=== PATIENT | female | born 1950 | race Caucasian/White ===

== ENCOUNTER → 2022-11-25 12:26 | Outpatient (CLI) | payer OTHER, MEDICAID, SELFPAY ==
--- NOTE | 2022-11-25 12:31 | DI.ECHO.S_ITS ---
[facility]---------+ [facility] +---------+ : : [address] : [place] : : : : [id number] : : : : Phone: [phone]+ Echocardiogram Report + + :Name: SYED RUSHING Study Date: 11/25/2022 Height: 62 in : :[facility] ReadingLocation: Weight: 114 lb : : Gender: Female BSA: 1.5 m2 : :: 1950 Age: 72 yrs BP: 134/71 mmHg: :Reason For Study: AORTIC INSUFFICIENCY : :Ordering Physician: Wendy GRANDEformed By: Elaine Hoyt : :Referring: BRIANA GRANDE : + + Interpretation Summary The left ventricle is normal in size and wall thickness. The ejection fraction is estimated to be 60-65%. The right ventricle is normal in size and function. There is mild mitral regurgitation. There is mild aortic regurgitation. There is mild tricuspid regurgitation. The right ventricular systolic pressure is estimated to be at least 24 mmHg based on an estimated right atrial pressure of 3 mm Hg. Procedure: A two-dimensional transthoracic echocardiogram with color flow and Doppler was performed. The study quality was technically adequate. There is no prior echocardiogram noted for this patient. The patient was in sinus bradycardia with heart rates between 52-60 bpm during the exam. Left Ventricle: The left ventricle is normal in size and wall thickness. There is no thrombus. The ejection fraction is estimated to be 60-65%. There are no focal wall motion abnormalities. MV E/A: 1.1 Med Peak E' Alec: 6.8 cm/sec E/E' med: 10.6. Right Ventricle: The right ventricle is normal in size and function. Atria: The left atrial size is normal. Right atrial size is normal. There is no Doppler evidence for an interatrial shunt. Mitral Valve: The mitral valve leaflets are slightly calcified. There is mild mitral regurgitation. Aortic Valve: The aortic valve is trileaflet. The aortic valve opens well. There is no aortic valve stenosis. There is mild aortic regurgitation. Tricuspid Valve: The tricuspid valve is normal. There is mild tricuspid regurgitation. The right ventricular systolic pressure is estimated to be at least 24 mmHg based on an estimated right atrial pressure of 3 mm Hg. Pulmonic Valve: The pulmonic valve is not well visualized. There is no pulmonic valvular regurgitation. Great Vessels: The aortic root is normal size. The dimensions of the ascending aorta are normal. The IVC is of normal diameter and collapses greater than 50% with a sniff. This suggests a low right atrial pressure of 3 mm Hg. Pericardium/ Pleura There is no pericardial effusion. There is no pleural effusion. MMode/2D Measurements & Calculations LVIDd: 4.5 cm LVOT diam: 1.8 cm LVIDs: 2.9 cm Ao root diam: 2.8 cm FS: 35.0 % asc Aorta Diam: 2.9 cm IVSd: 0.55 cm Ao Arch Diam (Prox Trans): 2.5 cm LVPWd: 0.57 cm LV manley. diameter/BSA (cm/m^2): 3.0 LV sys. diameter/BSA (cm/m^2): 1.9 LA A2 area: 12.9 cm2 RA long axis: 4.0 cm LA A4 area: 9.9 cm2 RA area: 12.4 cm2 LA length (vol): 3.9 cm RA vol: 32.5 ml LA vol: 28.2 ml RA : 21.6 ml/m2 LA vol index: 18.8 ml/m2 IVC diam: 1.4 cm RVD1 (basal): 3.3 cm TAPSE: 2.5 cm Doppler Measurements & Calculations Ao V2 max: 112.8 cm/sec LVOT Max Alec: 95.4 cm/sec Ao V2 mean: 70.8 cm/sec LV V1 max P.6 mmHg Ao max P.1 mmHg LV V1 VTI: 20.9 cm Ao mean P.3 mmHg ANDREW(I,D): 2.2 cm2 Ao V2 VTI: 24.8 cm ANDREW(V,D): 2.3 cm2 sev ratio: 0.84 ANDREW indexed to BSA (cm^2/m^2): 1.5 AI P1/2t: 685.3 msec AI dec slope: 166.3 cm/sec2 MV E max alec: 72.0 cm/sec TR max alec: 227.2 cm/sec MV A max alec: 63.6 cm/sec TR max P.6 mmHg MV E/A: 1.1 PA V2 max: 76.4 cm/sec Med Peak E' Alec: 6.8 cm/sec PA V2 mean: 55.9 cm/sec E/E' med: 10.6 PA mean P.4 mmHg Lat Peak E' Alec: 8.5 cm/sec PA pr(Accel): 37.9 mmHg E/E' lat: 8.5 E/e' average: 9.5 MV dec time: 0.20 sec SV(OT): 55.6 ml Reading Physician:05:24 PM
== END ==
PROVIDERS: PCP Internal Medicine; Referring Provider Internal Medicine Cardiovascular Disease; Visit Provider Internal Medicine Cardiovascular Disease
DX: I35.1 Nonrheumatic aortic (valve) insufficiency (principal); I34.0 Nonrheumatic mitral (valve) insufficiency; I07.1 Rheumatic tricuspid insufficiency
CPT/HCPCS: 93306

== ENCOUNTER → 2023-12-09 12:14 | Outpatient (CLI) | payer MEDICARE, SELFPAY ==
--- NOTE | 2023-12-09 12:18 | DI.ECHO.S_ITS ---
[facility] +---------+ [facility] : : [address] : : [place] : : [id number] : : Phone: [phone] Echocardiogram Report + + :Name: SYED RUSHING Study Date: 12/09/2023 Height: 62 in : :[facility] ReadingLocation: Weight: 112 lb : : Gender: Female BSA: 1.5 m2 : :: 1950 Age: 73 yrs BP: 158/77 mmHg: :Reason For Study: MITRAL INSUFFICIENCY : :Ordering Physician: Wendy GRANDEformed By: Elaine Hoyt : :Referring: BRIANA GRANDE : + + Interpretation Summary The patient was in sinus bradycardia with heart rates between 52-64 bpm during the exam. The ejection fraction is estimated to be 60-65%. Diastolic parameters suggest probable normal left ventricular diastolic function and normal filling pressures. The right ventricle is normal in size and function. There is mild mitral regurgitation. There is mild aortic regurgitation. There is mild tricuspid regurgitation. The right ventricular systolic pressure is estimated to be at least 28 mmHg based on an estimated right atrial pressure of 3 mm Hg. Compared to the prior study dated 11/25/2022, no significant change. Procedure: A two-dimensional transthoracic echocardiogram with color flow and Doppler was performed. The study quality was technically adequate. Comparison is made with the echocardiogram of 11/25/2022. The patient was in sinus bradycardia with heart rates between 52-64 bpm during the exam. Left Ventricle: The left ventricle is normal in size and wall thickness. The ejection fraction is estimated to be 60-65%. Diastolic parameters suggest probable normal left ventricular diastolic function and normal filling pressures. Right Ventricle: The right ventricle is normal in size and function. Atria: The left atrial size is normal. This is unchanged compared to the previous study. There is no Doppler evidence for an interatrial shunt. Mitral Valve: The mitral valve leaflets appear mildly thickened, but open well. The mitral valve leaflets are slightly calcified. There is mild mitral regurgitation. Aortic Valve: The aortic valve is trileaflet. The aortic valve opens well. There is no aortic valve stenosis. There is mild aortic regurgitation. Tricuspid Valve: The tricuspid valve is normal in structure and function. There is mild tricuspid regurgitation. The right ventricular systolic pressure is estimated to be at least 28 mmHg based on an estimated right atrial pressure of 3 mm Hg. Pulmonic Valve: The pulmonic valve is not well visualized. There is no pulmonic valvular regurgitation. Great Vessels: The aortic root is normal size. The dimensions of the ascending aorta are normal. The IVC is of normal diameter and collapses greater than 50% with a sniff. This suggests a low right atrial pressure of 3 mm Hg. Pericardium/ Pleura There is no pericardial effusion. There is no pleural effusion. MMode/2D Measurements & Calculations LVIDd: 4.4 cm LVOT diam: 2.0 cm LVIDs: 2.6 cm Ao root diam: 2.7 cm FS: 39.8 % asc Aorta Diam: 2.9 cm EPSS: 0.27 cm Ao Arch Diam (Prox Trans): 2.1 cm IVSd: 0.59 cm LVPWd: 0.50 cm LV manley. diameter/BSA (cm/m^2): 2.9 LV sys. diameter/BSA (cm/m^2): 1.8 LA A2 area: 15.1 cm2 RA long axis: 4.2 cm LA A4 area: 11.1 cm2 RA area: 14.0 cm2 LA length (vol): 4.2 cm RA vol: 39.5 ml LA vol: 34.1 ml RA : 26.4 ml/m2 LA vol index: 22.8 ml/m2 IVC diam: 1.8 cm RVD1 (basal): 3.8 cm TAPSE: 2.7 cm Doppler Measurements & Calculations Ao V2 max: 119.0 cm/sec LVOT Max Alec: 98.1 cm/sec Ao V2 mean: 82.6 cm/sec LV V1 max P.9 mmHg Ao max P.7 mmHg LV V1 VTI: 22.5 cm Ao mean P.0 mmHg ANDREW(I,D): 2.5 cm2 Ao V2 VTI: 28.3 cm ANDREW(V,D): 2.6 cm2 sev ratio: 0.79 ANDREW indexed to BSA (cm^2/m^2): 1.7 AI P1/2t: 645.8 msec AI dec slope: 188.1 cm/sec2 MV E max alec: 89.2 cm/sec TR max alec: 248.0 cm/sec MV A max alec: 63.3 cm/sec TR max P.6 mmHg MV E/A: 1.4 PA V2 max: 73.9 cm/sec Med Peak E' Alec: 7.2 cm/sec PA V2 mean: 55.7 cm/sec E/E' med: 12.5 PA mean P.4 mmHg Lat Peak E' Alec: 9.1 cm/sec PA pr(Accel): 31.0 mmHg E/E' lat: 9.8 E/e' average: 11.1 MV dec time: 0.19 sec SV(OT): 69.9 ml Reading Physician:04:25 PM
== END ==
LOC: ECHO 12:17
PROVIDERS: PCP Internal Medicine; Referring Provider Internal Medicine Cardiovascular Disease; Visit Provider Internal Medicine Cardiovascular Disease
DX: I08.3 Combined rheumatic disorders of mitral, aortic and tricuspid valves (principal)
CPT/HCPCS: 93306